=== PATIENT | female | born 1990 | race African-American/Black ===

== ENCOUNTER 2018-05-24 17:32 | Emergency (ER) | payer MEDICAID ==
[~2018-05-24] VITALS: Ht 157.5 cm; Wt 81.6 kg
[2018-05-24 17:42] VITALS: BP 93/70
== END 2018-05-24 18:17 | disposition left against medical advice (07) ==
LOC: ER 17:32
DX: R06.02 Shortness of breath (principal); Z53.21 Procedure and treatment not carried out due to patient leaving prior to being seen by health care provider

== ENCOUNTER 2019-01-27 13:50 | Emergency (ER) | payer SELFPAY | END 2019-01-27 15:14 | disposition left against medical advice (07) | LOC: ER 13:53 | DX: R05 Cough (principal); Z53.21 Procedure and treatment not carried out due to patient leaving prior to being seen by health care provider ==